=== PATIENT | male | born 1940 | race Caucasian/White ===

== ENCOUNTER 2018-07-09 13:44 | Emergency (ER) | payer BC ==
[2018-07-09 14:41] VITALS: BP 149/74
--- NOTE | 2018-07-09 15:18 | ED ---
Skin Complaint - HPI Summary HPI Summary: pt presents to the for evaluation of his right to his right lower chest wall. He states that it started a few days ago. it is "itchy" and slightly painful. he states he had his zoster shot. he denies any fever, chills, nausea or vomiting. - History of Current Complaint Chief Complaint: UCRash Stated Complaint: SKIN COMPLAINT Hx Obtained From: Patient, Family/Staffing Consultant Onset/Duration: Started Days Ago Timing: Constant Onset Severity: Moderate Current Severity: Mild Pain Intensity: 0 Skin Location: Discrete, Chest Aggravating Symptom(s): Touch Alleviating Symptom(s): Nothing - Allergy/Home Medications Allergies/Adverse Reactions: Allergies Allergy/AdvReac Type Severity Reaction Status Date / Time No Known Allergies Allergy Verified 07/09/18 14:49 Home Medications: Home Medications Furosemide 20 mg PO QAM 07/09/18 [History Confirmed 07/09/18] PMH/Surg Hx/FS Hx/Imm Hx Previously Healthy: Yes Cardiovascular History: Denies: Hx Aneurysm Respiratory History: Denies: Hx Asthma GI History: Reports: Hx Cirrhosis History: Denies: Hx Acute Renal Failure Musculoskeletal History: Denies: Hx Arthritis EENT History: Denies: Hx Deafness Neurological History: Denies: Hx CVA - Cancer History Hx Hematologic Symptoms: No - Immunization History Immunizations Up to Date: Yes Infectious Disease History: No Infectious Disease History: Denies: Traveled Outside the [place] in Last 30 Days - Social History Alcohol Use: None Substance Use Type: Reports: None Smoking Status (MU): Former Smoker Length of Time of Smoking/Using Tobacco: 1957 Review of Systems Constitutional: Negative Eyes: Negative ENT: Negative Cardiovascular: Negative Respiratory: Negative Gastrointestinal: Negative Genitourinary: Negative Musculoskeletal: Negative Positive: Rash Neurological: Negative Psychological: Normal All Other Systems Reviewed And Are Negative: No Physical Exam Triage Information Reviewed: Yes Vital Signs On Initial Exam: Initial Vitals Temp Pulse Resp BP Pulse Ox 97.6 F 91 18 149/74 100 07/09/18 14:25 07/09/18 14:25 07/09/18 14:25 07/09/18 14:25 07/09/18 14:25 Vital Signs Reviewed: Yes Appearance: Positive: Well-Appearing, No Pain Distress, Well-Nourished Skin: Positive: Warm, Other - pt has vesicular lesions noted to his right inferior chest wall that radiates to his right back. it is unilateral. it is slightly tender to touch. Head/Face: Positive: Normal Head/Face Inspection Eyes: Positive: Normal, EOMI, SANDRINE ENT: Positive: Normal ENT inspection, Hearing grossly normal, Pharynx normal Neck: Positive: Supple, Nontender, No Lymphadenopathy Respiratory/Lung Sounds: Positive: Clear to Auscultation, Breath Sounds Present Cardiovascular: Positive: Normal, RRR Abdomen Description: Positive: Nontender, Soft Bowel Sounds: Positive: Present Musculoskeletal: Positive: Normal, Strength/ROM Intact Neurological: Positive: Normal, Sensory/Motor Intact, CN Intact II-III Psychiatric: Positive: Normal AVPU Assessment: Alert Diagnostics - Vital Signs Vital Signs Temp Pulse Resp BP Pulse Ox 07/09/18 14:25 97.6 F 91 18 149/74 100 - Laboratory Lab Statement: Any lab studies that have been ordered have been reviewed, and results considered in the medical decision making process. Course/Dx - Course Course Of Treatment: pt has a rash to his right lower chest wall. there is herpes zoster there. will tx pt with acyclovir and prednisone. I further instructed pt to take tylenol and motrin for pain. he does also talk about chest pain. it is near his zoster. pt also states he has been doing a lot of manual [place] he is complaining of chest wall pain only when he moves his shoulder. He has no other associated symptoms. I discussed with him performing an ekg. he and his defer. I explained to him and his the fact that I would like to make sure that he is not having a cardiac event although I do think this is unlikely. EKG not done as per pt and 's request. - Differential Diagnoses - Skin Complaint Differential Diagnoses: Abscess, Cellulitis, Drug Rash, Eczema, Poison [place], Poison [place], Scabies, Varicella Zoster, Viral Exanthem, Other - Diagnoses Provider Diagnoses: Shingles Discharge - Sign-Out/Discharge Documenting (check all that apply): Patient Departure All imaging exams completed and their final reports reviewed: No Studies - Discharge Plan Condition: Stable Disposition: HOME Prescriptions: Acyclovir* [Zovirax 400 MG TAB*] 800 mg PO QID #40 tab MDD 4 predniSONE TAB* [Deltasone 20 MG TAB*] 60 mg PO DAILY #15 tab Patient Education Materials: Shingles (ED) Referrals: Octaviano Abdul DO [Primary Care Provider] - Additional Instructions: Take the prednisone and acyclovir for your shingles. Take tylenol and motrin for pain. it is important to follow up with your primary care physician. Please follow up with your doctor regarding your chest pain. - Billing Disposition and Condition Condition: STABLE Disposition: Home
== END 2018-07-09 15:35 | disposition home or self-care (01) ==
LOC: UCCORT 13:44
DX: B02.9 Zoster without complications (principal); Z87.891 Personal history of nicotine dependence
CPT/HCPCS: 99202; G0463